=== PATIENT | male | born 1990 | race Hispanic/Latino ===

== ENCOUNTER 2018-11-01 18:10 | Emergency (ER) | payer OTHER ==
[2018-11-01] MEDS ORDERED: IBUPROFEN 600 MG TABLET ONE (18:24)
[2018-11-01] MEDS ORDERED: ORPHENADRINE CITRATE 30 MG/ML ML ONE (18:24)
== END 2018-11-01 19:09 | disposition home or self-care (01) ==
LOC: EDH 18:10
DX: M54.2 Cervicalgia (principal); M62.838 Other muscle spasm; V49.49XA Driver injured in collision with other motor vehicles in traffic accident, initial encounter; Y93.89 Activity, other specified; Y92.89 Other specified places as the place of occurrence of the external cause; Y99.8 Other external cause status
CPT/HCPCS: 72040; 96372; 99283; J2360